=== PATIENT | male | born 1950 | race Caucasian/White ===

== ENCOUNTER → 2016-09-05 | Outpatient (CLI) | payer BC | END | disposition home or self-care (01) | LOC: PCVCIMAG 09:06 | PROVIDERS: ATTEND Internal Medicine | DX: I71.2 Thoracic aortic aneurysm, without rupture (principal); R00.2 Palpitations; I08.1 Rheumatic disorders of both mitral and tricuspid valves | CPT/HCPCS: 80061; 93005; 93306; G0463 ==

== ENCOUNTER → 2017-09-07 | Outpatient (CLI) | payer OTHER | END | disposition home or self-care (01) | LOC: PCVCIMAG 08:07 | DX: I71.2 Thoracic aortic aneurysm, without rupture (principal); I49.3 Ventricular premature depolarization | CPT/HCPCS: 93306 ==

== ENCOUNTER → 2018-09-21 | Outpatient (CLI) | payer OTHER ==
--- NOTE | 2018-09-21 09:50 | PCVCIMAG ---
APPROVED REPORT Study performed: 09/21/2018 08:10:41 EXAM: Comprehensive 2D, Doppler, and color-flow Echocardiogram Patient Location: Echo lab Room #: 2Status: routine BSA: 2.33 HR: 52 bpmBP: 104/68 mmHg Rhythm: Bradycardia Other Information Study Quality: Good Risk Factors: Cardiac Risk Factors: Hyperlipidemia Indications Palpitations Dilated ascending aorta 2D Dimensions IVSd: 9.59 (7-11mm)LVOT Diam: 25.49 (18-24mm) LVDd: 47.49 mm PWd: 8.27 (7-11mm)Ascending Ao: 43.41 (22-36mm) LVDs: 36.33 (25-40mm) Left Atrium: 29.64 (27-40mm) Aortic Root: 38.44 mm LV Single Plane 4CH: 59.48 % LV Single Plane 2CH: 62.79 % Biplane EF: 61.0 % Volumes Left Atrial Volume (Systole) Single Plane 4CH: 46.94 mLSingle Plane 2CH: 66.20 mL Biplane LA Volume: 56.00 mLLA ESV Index: 24.00 mL/m2 Aortic Valve AoV Peak Ephraim.: 1.57 m/s AO Peak Gr.: 9.87 mmHg Mitral Valve E/A Ratio: 1.1 MV Decel. Time: 271.54 ms MV E Max Ephraim.: 0.74 m/s MV A Ephraim.: 0.69 m/s IVRT: 100.35 ms TDI E/Lateral E': 8.22E/Medial E': 9.25 Medial E' Ephraim.: 0.08 m/s Lateral E' Ephraim.: 0.09 m/s Pulmonary Valve PV Peak Ephraim.: 0.85 m/sPV Peak Gr.: 2.91 mmHg Pulmonary Vein P Vein S: 0.71 m/sP Vein A: 0.27 m/s P Vein D: 0.67 m/sP Vein A Dur.: 100.3 msec P Vein S/D Ratio: 1.06 Tricuspid Valve TR Peak Ephraim.: 2.39 m/s TR Peak Gr.: 22.81 mmHg TV Vmax: 0.55 m/sPA Pressure: 30.00 mmHg Left Ventricle The left ventricle is normal size. There is normal LV segmental wall motion. There is normal left ventricular wall thickness. Left ventricular systolic function is normal. The left ventricular ejection fraction is within the normal range. LVEF is 60-65%. The left ventricular diastolic function is normal. Right Ventricle The right ventricle is normal size. The right ventricular systolic function is normal. Atria The left atrium size is normal. The right atrium size is normal. Aortic Valve Aortic valve is trileaflet, mildly sclerotic No aortic regurgitation is present. There is no aortic valvular stenosis. Mitral Valve The mitral valve is normal in structure. Trace to mild mitral regurgitation. No evidence of mitral valve stenosis. Tricuspid Valve The tricuspid valve is normal in structure. Mild tricuspid regurgitation with a PA pressure of 30 mmHg. Borderline pulmonary hypertension. Pulmonic Valve The pulmonary valve is normal in structure. Trace pulmonic regurgitation. Great Vessels The aortic root is normal in size. The ascending aorta is dilated (4.4cm). Aortic arch is normal in caliber. IVC is normal in size and collapses >50% with inspiration. Pericardium There is no pericardial effusion. There is no pleural effusion. <Conclusion> Left ventricular systolic function is normal. There is normal LV segmental wall motion. LVEF is 60-65%. Aortic valve is trileaflet, mildly sclerotic. No aortic regurgitation or stenosis The mitral valve is normal in structure. Trace to mild mitral regurgitation. Mild tricuspid regurgitation with a pulmonary artery pressure of 30 mmHg. The ascending aorta is dilated (4.4cm). There is no pericardial effusion.
== END | disposition home or self-care (01) ==
LOC: PCVCIMAG 07:57
PROVIDERS: ATTEND Internal Medicine
DX: I07.1 Rheumatic tricuspid insufficiency (principal); R00.2 Palpitations
CPT/HCPCS: 93306